=== PATIENT | male | born 1950 | race Caucasian/White ===

== ENCOUNTER 2019-05-07 13:53 | Inpatient (IN) | payer MEDICARE ==
[~2019-05-07] VITALS: Ht 182.9 cm; Wt 118.2 kg
[~2019-05-07 13:53] MED LIST: ASPI-1264 PO; PRAV20TA60 PO; RIVA20TA PO; SOTA80TA PO; ZOLP10TA5 PO; ibuprofen PO
[2019-05-07] MEDS ORDERED: enoxaparin 60mg/0.6ml syringe SUBCUT ONE (15:25)
[2019-05-07 15:48] LABS: BASOPHILS # (AUTO) 0.1 X10'3 (0-0.2); BASOPHILS % (AUTO) 0.9 % (0-1); EOSINOPHILS # (AUTO) 0.3 X10'3 (0-0.9); EOSINOPHILS % (AUTO) 3.8 % (0-6); HEMATOCRIT 44.8 % (42.0-52.0); HEMOGLOBIN 15.5 g/dl (14.0-17.9); LYMPHOCYTES # (AUTO) 1.4 X10'3 (1.1-4.8); LYMPHOCYTES % (AUTO) 19.7 % (21-51); MEAN CORPUSCULAR HEMOGLOBIN 31.5 PG (27.0-31.0); MEAN CORPUSCULAR HGB CONC 34.5 g/dL (33.0-36.5); MEAN CORPUSCULAR VOLUME 91.1 FL (78-98); MEAN PLATELET VOLUME 8.2 FL (7.4-10.4); MONOCYTES # (AUTO) 0.6 X10'3 (0-0.9); MONOCYTES % (AUTO) 7.7 % (2-12); NEUTROPHILS # (AUTO) 4.9 X10'3 (1.8-7.7); NEUTROPHILS % (AUTO) 67.9 % (42-75); PLATELET COUNT 219 X10'3 (140-440); RED BLOOD COUNT 4.92 X10'6 (4.70-6.10); RED CELL DISTRIBUTION WIDTH 13.6 % (11.5-14.5); WHITE BLOOD COUNT 7.2 X10'3 (4.5-11.0)
[2019-05-07 16:01] LABS: PARTIAL THROMBOPLASTIN TIME 26 SECONDS (22-32)
[2019-05-07 16:10] LABS: ALANINE AMINOTRANSFERASE 41 U/L (12-78); ALBUMIN 3.9 G/DL (3.4-5.0); ALKALINE PHOSPHATASE 120 IU/L (46-116); ANION GAP 7 (8-16); ASPARTATE AMINO TRANSFERASE 22 U/L (10-37); BILIRUBIN,TOTAL 0.8 MG/DL (0.1-1.0); BLOOD UREA NITROGEN 18 MG/DL (7-18); BUN/CREATININE RATIO 19.1 (5.4-32.0); CALCIUM 8.9 MG/DL (8.5-10.1); CHLORIDE 108 MMOL/L (99-107); CREATININE 0.94 MG/DL (0.60-1.10); GLUCOSE 95 MG/DL (70-104); MAGNESIUM 2.3 MG/DL (1.5-2.4); POTASSIUM 4.3 MMOL/L (3.5-5.1); SODIUM 143 MMOL/L (135-145); TOTAL CARBON DIOXIDE 28.2 MMOL/L (24-32); TOTAL PROTEIN 7.7 G/DL (6.4-8.2); eGFR 80 ML/MIN
[2019-05-07] MEDS ORDERED: CARV3.12 PO (16:25)
[2019-05-07] MEDS ORDERED: HYDR-3972 PO (16:27)
[2019-05-07] MEDS ORDERED: magnesium Cl slow-release 64mg tablet PO PRN (16:45)
[2019-05-07] MEDS ORDERED: mag hydrox/Alum hydrox/simeth 30ml oral suspension PO PRN (16:45)
[2019-05-07] MEDS ORDERED: potassium Cl 20 mEq SR tablet PO PRN ×2 (16:45)
[2019-05-07] MEDS ORDERED: magnesium hydroxide 30ml (MOM) UD suspension PO PRN (16:45)
[2019-05-07] MEDS ORDERED: magnesium 2GM in 50ml NS 50 ML IV PRN (16:45)
[2019-05-07] MEDS ORDERED: magnesium 4gm in 100ml NS 100 ML IV PRN (16:45)
[2019-05-07] MEDS ORDERED: potassium CL 10mEq/100ml bag 100 ML IV PRN ×2 (16:45)
[2019-05-07] MEDS ORDERED: ondansetron/PF 4mg/2ml inj IV PRN (16:45)
[2019-05-07] MEDS ORDERED: morphine 2 MG/ML inj. syringe IV PRN (16:45)
[2019-05-07] MEDS ORDERED: acetaminophen 325mg tablet PO PRN ×2 (16:45)
[2019-05-07] MEDS ORDERED: HYDROcodone/acetaminophen 5mg/325mg tablet PO PRN (16:45)
[2019-05-07] MEDS: normal saline 1000ml 1,000 ML IV SCH (17:01)
[2019-05-07] MEDS ORDERED: iohexol 350MG/ML 100ml bottle IV ONE (17:07)
[2019-05-07 18:00] VITALS: BP 119/71
--- NOTE | 2019-05-07 18:38 | NUR ---
I have received report from Jhony PICKETT in ER and had the opportunity to ask questions and awaiting pt arrival .
[2019-05-07] MEDS: enoxaparin 80mg/0.8ml syringe SUBCUT SCH (19:37)
[2019-05-07] MEDS: carVEDilol 3.125mg tablet PO SCH (19:37)
[2019-05-08] VITALS: BP 99/58
[2019-05-08] MEDS: normal saline 1000ml 1,000 ML IV SCH (05:49)
--- NOTE | 2019-05-08 06:26 | NUR ---
Problems reprioritized. Patient report given, questions answered & plan of care reviewed with Billie PICKETT.
[2019-05-08 06:52] LABS: ALBUMIN 3.3 G/DL (3.4-5.0); ANION GAP 10 (8-16); BLOOD UREA NITROGEN 18 MG/DL (7-18); BUN/CREATININE RATIO 20.7 (5.4-32.0); CALCIUM 8.2 MG/DL (8.5-10.1); CHLORIDE 109 MMOL/L (99-107); CHOL/HDL RATIO 4.9 (0.00-4.99); CHOLESTEROL 141 MG/DL (0-200); CREATININE 0.87 MG/DL (0.60-1.10); GLUCOSE 103 MG/DL (70-104); HDL CHOLESTEROL 29 MG/DL (35-60); LDL CHOLESTEROL 104 MG/DL (50-100); POTASSIUM 4.1 MMOL/L (3.5-5.1); SODIUM 143 MMOL/L (135-145); TOTAL CARBON DIOXIDE 23.8 MMOL/L (24-32); TRIGLYCERIDES 102 MG/DL (20-135); eGFR 87 ML/MIN
[2019-05-08 07:00] VITALS: BP 106/65
[2019-05-08 07:05] LABS: BASOPHILS % (AUTO) 0.4 % (0-1); EOSINOPHILS # (AUTO) 0.2 X10'3 (0-0.9); EOSINOPHILS % (AUTO) 3.3 % (0-6); HEMATOCRIT 40.4 % (42.0-52.0); HEMOGLOBIN 13.7 g/dl (14.0-17.9); LYMPHOCYTES # (AUTO) 1.6 X10'3 (1.1-4.8); LYMPHOCYTES % (AUTO) 25.8 % (21-51); MEAN CORPUSCULAR HEMOGLOBIN 31.1 PG (27.0-31.0); MEAN CORPUSCULAR HGB CONC 33.8 g/dL (33.0-36.5); MEAN PLATELET VOLUME 8.6 FL (7.4-10.4); MONOCYTES # (AUTO) 0.4 X10'3 (0-0.9); MONOCYTES % (AUTO) 6.6 % (2-12); NEUTROPHILS % (AUTO) 63.9 % (42-75); PLATELET COUNT 181 X10'3 (140-440); RED BLOOD COUNT 4.39 X10'6 (4.70-6.10); WHITE BLOOD COUNT 6.3 X10'3 (4.5-11.0)
[2019-05-08] MEDS ORDERED: atorvastatin 10mg tablet PO SCH (08:00)
[2019-05-08] MEDS ORDERED: K and/or MAG REPLACEMENT MC SCH (08:00)
[2019-05-08] MEDS: carVEDilol 3.125mg tablet PO SCH (08:03)
[2019-05-08] MEDS: enoxaparin 80mg/0.8ml syringe SUBCUT SCH (08:04)
[2019-05-08] MEDS ORDERED: pneumococcal 23-VAL P-sac vacc 25 mcg/0.5ml vial IMVAC ONE (10:00)
[2019-05-08] MEDS ORDERED: APIX5TAB3 PO ×2 (10:48→10:51)
[2019-05-08 11:18] VITALS: BP 109/69
--- NOTE | 2019-05-08 13:08 | NUR ---
Patient discharged with all belongings. Patient walked to front lobby with PCT. to take pt home. IV taken out, tele taken off.
[2019-05-12 11:25] LABS: ANTITHROMBIN ACTIVITY 101 % (75-135); ANTITHROMBIN ANTIGEN 90 % (72-124)
[2019-05-12 13:10] LABS: PROTEIN S, FREE 97 % (57-157); PROTEIN S, TOTAL 90 % (60-150)
== END 2019-05-08 12:45 | disposition home or self-care (01) | DRG 299 ==
LOC: ER 13:53 → SUR 3N 18:43
PROVIDERS: ADMIT Internal Medicine; ATTEND Internal Medicine
PROC: B32T1ZZ Computerized Tomography (CT Scan) of Left Pulmonary Artery using Low Osmolar Contrast (ICD-10-PCS; 2019-05-07)
PROC: B3201ZZ Computerized Tomography (CT Scan) of Thoracic Aorta using Low Osmolar Contrast (ICD-10-PCS; 2019-05-07)
PROC: B32S1ZZ Computerized Tomography (CT Scan) of Right Pulmonary Artery using Low Osmolar Contrast (ICD-10-PCS; 2019-05-07)
PROC: 3E0234Z Introduction of Serum, Toxoid and Vaccine into Muscle, Percutaneous Approach (ICD-10-PCS; principal; 2019-05-08)
DX: I82.412 Acute embolism and thrombosis of left femoral vein (principal); I26.99 Other pulmonary embolism without acute cor pulmonale; I82.432 Acute embolism and thrombosis of left popliteal vein; E78.5 Hyperlipidemia, unspecified; I48.91 Unspecified atrial fibrillation; Z79.01 Long term (current) use of anticoagulants; Z23 Encounter for immunization; Z79.899 Other long term (current) drug therapy; I82.501 Chronic embolism and thrombosis of unspecified deep veins of right lower extremity; Z82.5 Family history of asthma and other chronic lower respiratory diseases; Z82.49 Family history of ischemic heart disease and other diseases of the circulatory system; Z82.0 Family history of epilepsy and other diseases of the nervous system
CPT/HCPCS: 36415; 71275; 80048; 80053; 80061; 81479; 83735; 83891; 83894; 83898; 85025; 85300; 85301; 85303; 85305; 85306; 85610; 85730; 86146; 86147; 87081; 90732; 93005; 96360; 96361; 96372; 97116; 97161; 99285; G0378; J1650; J7030; Q9967